=== PATIENT | male | born 1945 | race Caucasian/White ===

== ENCOUNTER → 2023-11-20 09:20 | Outpatient (REF) | payer OTHER, SELFPAY | LOC: HWRCS 09:20 | PROVIDERS: ATTENDING PHYSICIAN Family Medicine | DX: R01.1 Cardiac murmur, unspecified (principal) | CPT/HCPCS: 93306 ==

== ENCOUNTER 2024-06-29 12:08 | Emergency (ER) | payer OTHER, SELFPAY ==
[2024-06-29 12:10] VITALS: BP 167/89
[2024-06-29 12:28] LABS: Urine Albumin 1+ (Neg - Trace); Urine Bilirubin Negative (Negative); Urine Character Clear (Clear); Urine Color Yellow; Urine Glucose 2+ (Negative); Urine Ketone 1+ (Negative); Urine Leukocyte Negative (Negative); Urine Nitrite Negative (Negative); Urine Occult Blood 4+ (Negative); Urine Specific Gravity 1.025 (<1.030); Urine Urobilinogen Negative (Neg - 1+)
[2024-06-29 12:30] LABS: % Basophils 0.6 % (0-2); % Eosinophils 2.3 % (0-6); % Immature Granulocytes 0.3 % (0-0.5); % Lymphocytes 12.2 % (20.5-51.1); % Monocytes 5.6 % (1.7-9.3); Absolute Basophils 0.1 10^3/uL (0-0.2); Absolute Eosinophils 0.3 10^3/uL (0-0.7); Absolute Lymphocytes 1.5 10^3/uL (1.2-3.4); Absolute Monocytes 0.7 10^3/uL (0.1-0.6); Absolute Neutrophils 9.8 10^3/uL (1.4-6.5); Hematocrit 36.6 % (39.0-52.0); Hemoglobin 12.7 g/dL (13.0-18.0); Mean Corp Hgb Conc. 34.7 g/dL (33.0-37.0); Mean Corpuscular Hgb 29.3 pg (27.0-31.0); Mean Corpuscular Volume 84.5 fL (80.0-94.0); Mean Platelet Volume 11.1 fL (7.4-10.4); Nucleated Red Blood Cells % 0 % (-); Platelet Count 277 10^3/uL (130-400); Red Blood Cell Count 4.33 10^6/uL (4.70-6.10); Red Cell Dist. Width 12.3 % (11.5-14.5); White Blood Cell Count 12.5 10^3/uL (4.8-10.8)
[2024-06-29 12:40] LABS: Urine Bacteria Few (Negative); Urine Red Blood Cell >100 /HPF (0-2); Urine White Cell None Seen /HPF (0-5)
[2024-06-29 12:46] LABS: ALT (SGPT) 55 U/L (0-50); AST (SGOT) 47 U/L (17-59); Albumin 4.7 g/dl (3.5-5.0); Alkaline Phosphatase 53 U/L (38-126); Blood Urea Nitrogen 29 mg/dl (9-20); Calcium 10.4 mg/dl (8.4-10.2); Carbon Dioxide 25 mmol/L (22-30); Chloride 100 mmol/L (98-107); Glucose 216 mg/dl (70-99); Potassium 4.8 mmol/L (3.5-5.1); Sodium 139 mmol/L (135-145); Total Bilirubin 0.6 mg/dl (0.2-1.3); Total Protein 7.6 g/dl (6.3-8.2); eGFR > 60.00
[2024-06-29] MEDS: TORADOL 15 MG IV (13:23)
[2024-06-29 13:25] VITALS: BMI 27.3
--- NOTE | 2024-06-29 13:48 | ED.GENMED ---
History of Present Illness
General
Chief Complaint: Flank Pain
Source: patient
Exam Limitations: none
Time Seen by Provider: 06/29/24 13:18
Nursing documentation reviewed up to this point in time: agreed with
History of Present Illness
History of Present Illness:
79-year-old male with history of BPH, kidney stones once in 1984, NIDDM, HLD presents stating at 830 this stomach bloated he could not get comfortable with a heating pad or laying on either side. He then developed bilateral groin pain and felt like
he had to urinate but could only dribble a little urine each time. At 10 AM his groin pain migrated around to the left and has settled in the left flank and left abdomen areas where it has remained in the groin pain has subsided.
He denies fever or chills. Denies nausea at this time. Flank pain at this time 04/26.
Past History
Past History
ED Past Medical History: Hypercholesterolemia, NIDDM and Other (BPH, kidney stone 1984)
ED Past Surgical History: Other (Hernia repair, L shoulder rotator cuff repair)
Social History
Tobacco: Former smoker
Alcohol: Occasional
Drug: None
Personal:
Living: with family
Employment: Retired
Family History
Family History: Other (n/c)
Review of Systems
Review of Systems
Allergies reviewed?: Yes
All Other Systems: ROS reviewed and negative except as documented in HPI and ROS
Constitutional: Denies fever
Respiratory: Denies trouble breathing
Cardiac: Denies chest pain
ABD/GI: Reports abdominal pain, nausea and vomiting; Denies diarrhea
: Reports flank pain, difficulty voiding and urgency; Denies dysuria or dark urine
Musculoskeletal: Reports no symptoms
Skin: Reports no symptoms
Neurological: Reports no symptoms
Phy Exam
Physical Exam
Physical Exam:
GENERAL: No acute distress. A&Ox3.
CONSTITUTIONAL: Afebrile.
EYES: clear, conjunctivae normal
ENMT: moist mucus membranes
RESPIRATORY: Regular respirations, nonlabored, lungs clear.
CARDIOVASCULAR: Regular rate and rhythm, no murmurs, no rubs.
GI: Soft, normal BS. Mild left side abdomen and flank tenderness
MUSCULOSKELETAL: Moves with ease. Well perfused.
SKIN: Warm, dry, pink
PSYCH: Normal mood and affect. Well kept, interactive and appropriate
NEUROLOGIC: Awake, alert and oriented. No focal neurological deficits
Course
Orders/Labs/Results
Orders:
Orders
06/29/24 12:18
CMP [Comprehensive Metabolic Panel] Urgent
Complete Blood Count/With Diff Urgent
Urinalysis Reflex To Culture Urgent
Date Specimen was Collected: 06/29/24
Time Specimen was Collected: 12:12
Urine Microscopic Reflex Cult Urgent
06/29/24 13:19
Ketorolac [Toradol] 15 mg IM NOW STA
06/29/24 13:20
CT Abd/pel Without Iv Or Oral Urgent
Comment:
Reason For Exam: Left flank pain, hx stones
06/29/24 13:22
Ketorolac [Toradol] 15 mg IV NOW STA
06/29/24 15:07
HYDROmorphone [Dilaudid] 0.5 mg IV NOW STA
Abnormal Lab Results
06/29/24
12:18
WBC 12.5 H 10^3/uL
(4.8-10.8)
RBC 4.33 L 10^6/uL
(4.70-6.10)
Hgb 12.7 L g/dL
(13.0-18.0)
Hct 36.6 L %
(39.0-52.0)
MPV 11.1 H fL
(7.4-10.4)
Absolute Neuts (auto) 9.8 H 10^3/uL
(1.4-6.5)
Absolute Monos (auto) 0.7 H 10^3/uL
(0.1-0.6)
Neutrophils % 79.0 H %
(42.2-75.2)
Lymphocytes % 12.2 L %
(20.5-51.1)
BUN 29 H mg/dl
(9-20)
Glucose 216 H mg/dl
(70-99)
Calcium 10.4 H mg/dl
(8.4-10.2)
ALT 55 H U/L
(0-50)
Urine Ketones 1+ A
(Negative)
Ur Occult Blood Reflex 4+ A
(Negative)
Urine RBC >100 A /HPF
(0-2)
Urine Bacteria (Reflex) Few A
(Negative)
Urine Glucose 2+ A
(Negative)
Urine Albumin (Reflex) 1+ A
(Neg - Trace)
06/29/24 12:18
06/29/24 12:18
Vital Signs
Initial and Last Documented VS:
Initial Vital Signs
Temp Pulse Resp BP Pulse Ox
97.9 F 79 16 167/89 99
06/29/24 12:10 06/29/24 12:10 06/29/24 12:10 06/29/24 12:10 06/29/24 12:10
Last Documented Vital Signs
Temp Pulse Resp BP Pulse Ox
97.9 F 81 18 125/84 96
06/29/24 12:10 06/29/24 16:03 06/29/24 16:03 06/29/24 16:03 06/29/24 16:03
MDM/Problems Addressed
Differential Diagnosis Includes:
Left ureteral stone, pyelonephritis, UTI
MDM/Problems Addressed:
79-year-old male with history of BPH, kidney stones once in 1984, NIDDM, HLD presents stating at 830 this stomach bloated he could not get comfortable with a heating pad or laying on either side. He then developed bilateral groin pain and felt like
he had to urinate but could only dribble a little urine each time. At 10 AM his groin pain migrated around to the left and has settled in the left flank and left abdomen areas where it has remained in the groin pain has subsided.
He denies fever or chills. Denies nausea at this time. Flank pain at this time 04/26.
1:45 PM:
Patient states after Toradol the pain is '90% better.'
CBC: WBC 12.5
CMP: BUN 29, glucose 216, otherwise unremarkable
UA: Greater than 100 RBCs, no sign of infection
3:[address] abd/pelvis plain radiology report read: IMPRESSION:
Obstructing 3 mm left ureterovesical junction calculus. Bilateral nephroliths.
Calcification involving the aortic valve, incompletely included on the [id number] of this examination. Please correlate with any clinical signs or symptoms that would suggest significant aortic stenosis.
Mild enlargement of the prostate gland.
Small amount of fat present within the bladder wall, which is generally felt to be asymptomatic, considered normal variant.
Fatty infiltration of the liver.
Colonic diverticula with no CT evidence of diverticulitis.
Pt requesting more pain med.
4:00 p.m.
Pt states pain is minimal, is comfortable going home
Rx for Vicodin, Flomax sent to his pharmacy
Referred to Urology for F/U
*Critical Care Note
Total Time (30-74mins, 75-104mins- exclusive of procedures): Not Applicable
ED Attending Note
-
Portions of this chart may have been created with voice recognition software.� Occasional wrong word or��sound alike� substitutions may have occurred due to the inherent limitations of voice recognition software.
Discharge Plan
Departure
Patient Disposition: Home (Routine Discharge)
Date of Disposition: 06/29/24
Time of Disposition: 16:07
Patient with high blood pressure during this ER visit?: No
Condition: Good
Discharge Problem:
Calculus of distal left ureter
Instructions: Kidney Stones (DC), How to Strain Your Urine, Narcotic Pain Medication
Prescriptions:
New
hydrocodone-acetaminophen 5-325 mg tablet
1 tab PO Q4H PRN (Reason: Pain) Qty: 7 0RF
No Action
lisinopril 5 MG tablet
5 mg PO DAILY
metformin 750 MG tablet extended release 24 hr
3 tab PO DAILY
sitagliptin phosphate [Januvia] 50 MG tablet
1 tab PO DAILY
Flomax:
0.4 mg PO DAILY
cephalexin 500 MG capsule
500 mg PO QID Qty: 28 0RF
Referrals:
Nj Egan MD [Active] - Next open appointment
Tor Bucio DO [Family Provider] -
Activity Restrictions/Additional Instructions:
As we discussed, ibuprofen 600 mg, with food, every 6 hours as needed for mild to moderate pain and use the [place] (hydrocodone) if needed for worse pain.
I sent a prescription to your pharmacy for the hydrocodone
Return here immediately for fever, vomiting, worsening pain or feeling sicker in any way.
Interventions
Interventions:
*Risk Screen - Suicide Last Done: 06/29/24 12:10
*General Assessment Last Done: 06/29/24 12:10
*Neglect/Abuse Screening Last Done: 06/29/24 12:10
*ED COVID-19 Vaccine History Last Done: 06/29/24 12:10
*Nursing Disposition Last Done: 06/29/24 16:16
YW-Gnneta-Svgatlpnah Assessment Last Done: 06/29/24 13:25
ED-Male Genitourinary Assessment Last Done: 06/29/24 13:25
Discharge Date and Time
Discharge Date/Time: 06/29/24 16:18
Print Language: ESTONIAN
[2024-06-29 14:46] VITALS: BP 137/77
[2024-06-29] MEDS: DILAUDID 0.5 MG IV (15:25)
[2024-06-29 16:03] VITALS: BP 125/84
== END 2024-06-29 16:18 | disposition home or self-care (01) ==
LOC: EMR 12:08
PROVIDERS: EMERGENCY PHYSICIAN Emergency Medicine; FAMILY PHYSICIAN Family Medicine
DX: N20.1 Calculus of ureter (principal); E11.9 Type 2 diabetes mellitus without complications; E78.5 Hyperlipidemia, unspecified; N40.0 Benign prostatic hyperplasia without lower urinary tract symptoms; Z87.891 Personal history of nicotine dependence
CPT/HCPCS: 96374; 96375; 99284; 74176; 80053; 81003; 81015; 85025